=== PATIENT | male | born 1990 | race Caucasian/White ===

== ENCOUNTER 2017-03-02 01:02 | Emergency (ER) | payer OTHER ==
[~2017-03-02] VITALS: Ht 170.2 cm; Wt 79.4 kg
[2017-03-02 01:05] VITALS: BP 139/91
[2017-03-02] MEDS ORDERED: ACETAMINOPHEN TAB 650MG DOSE (2X325MG) PO ONE (02:15)
[2017-03-02] MEDS ORDERED: CIPROFLOXACIN HC OTIC SUSPENSION AS ONE (04:00)
[2017-03-02] MEDS ORDERED: OXYCODONE/APAP 5MG/325MG(BULK FOR ED) 1 TABLET PO ONE (04:15)
== END 2017-03-02 04:33 | disposition home or self-care (01) ==
LOC: M ED 02:21
DX: H60.92 Unspecified otitis externa, left ear (principal); F33.9 Major depressive disorder, recurrent, unspecified; F41.9 Anxiety disorder, unspecified; F17.200 Nicotine dependence, unspecified, uncomplicated

== ENCOUNTER 2017-03-04 21:55 | Emergency (ER) | payer OTHER ==
[~2017-03-04] VITALS: Ht 170.2 cm; Wt 79.4 kg
[2017-03-04] MEDS ORDERED: CIPRHCOTIC AS (22:07)
[2017-03-04] MEDS ORDERED: MOTR200T44 PO (22:08)
[2017-03-04] MEDS ORDERED: PERC5TAB6 PO (22:28)
[2017-03-04] MEDS ORDERED: AUGM875T27 PO (22:28)
[2017-03-04] MEDS ORDERED: AUGMENTIN 875 MG TAB PO ONE (22:30)
[2017-03-04] MEDS ORDERED: OXYCODONE/APAP 5MG/325MG(BULK FOR ED) 1 TABLET PO ONE (22:30)
[2017-03-04 22:32] VITALS: BP 141/75
== END 2017-03-04 22:45 | disposition home or self-care (01) ==
LOC: M ED 22:27
DX: H60.502 Unspecified acute noninfective otitis externa, left ear (principal)

== ENCOUNTER 2017-12-26 17:45 | Inpatient (IN) | payer OTHER ==
[2017-12-26 18:27] LABS: HEMATOCRIT 44.1 % (42.0-52.0); HEMOGLOBIN 16.1 g/dl (14.0-18.0); MEAN CORPUSCULAR HEMOGLOBIN 31.9 pg (27.0-33.0); MEAN CORPUSCULAR HGB CONC 36.5 g/dl (32.0-36.5); MEAN CORPUSCULAR VOLUME 87.5 fl (80.0-96.0); PLATELET COUNT, AUTOMATED 304 10^3/uL (150-450); RED BLOOD COUNT 5.04 10^6/uL (4.30-6.10); RED CELL DISTRIBUTION WIDTH 11.5 % (11.5-14.5); WHITE BLOOD COUNT 8.7 10^3/uL (4.0-10.0)
[2017-12-26 19:01] LABS: AMPHETAMINES LEVEL URINE NEGATIVE (NEGATIVE); BARBITURATES URINE NEGATIVE (NEGATIVE); BENZODIAZEPINES URINE NEGATIVE (NEGATIVE); CANNABINOIDS URINE NEGATIVE (NEGATIVE); COCAINE METABOLITE URINE NEGATIVE (NEGATIVE); METHADONE URINE NEGATIVE (NEGATIVE); OPIATES URINE NEGATIVE (NEGATIVE); PHENCYCLIDINE URINE NEGATIVE (NEGATIVE)
[2017-12-26 19:09] LABS: ALBUMIN 4.2 GM/DL (3.2-5.2); ALBUMIN/GLOBULIN RATIO 1.27 (1.00-1.93); ALKALINE PHOSPHATASE 92 U/L (45-117); ALT/SGPT 77 U/L (12-78); ANION GAP 7 MEQ/L (8-16); AST/SGOT 32 U/L (7-37); BILIRUBIN,DIRECT 0.1 MG/DL (0.0-0.2); BILIRUBIN,TOTAL 0.4 MG/DL (0.2-1.0); BLOOD UREA NITROGEN 16 MG/DL (7-18); CARBON DIOXIDE LEVEL 28 MEQ/L (21-32); CHLORIDE LEVEL 106 MEQ/L (98-107); CREATININE FOR GFR 0.91 MG/DL (0.70-1.30); ETHYL ALCOHOL (ETHANOL) < 0.003 % (0.000-0.010); GLOMERULAR FILTRATION RATE > 60.0 (>60); GLUCOSE, FASTING 73 MG/DL (70-100); POTASSIUM SERUM 4.1 MEQ/L (3.5-5.1); SALICYLATE LEVEL < 1.7 MG/DL (5.0-30.0); SODIUM LEVEL 141 MEQ/L (136-145); TOTAL PROTEIN 7.5 GM/DL (6.4-8.2)
[2017-12-26 19:11] LABS: ACETAMINOPHEN LEVEL < 2.0 UG/ML (10.0-30.0)
[2017-12-27] MEDS ORDERED: traZODone 50 MG TAB PO (01:30)
[2017-12-27] MEDS ORDERED: ACETAMINOPHEN TAB 650MG DOSE (2X325MG) PO (01:30)
[2017-12-27] MEDS ORDERED: MOM 30ML SUSPENSION UDC PO (01:30)
[2017-12-27] MEDS: ARIPiprazole 2 MG TAB PO (11:22)
[2017-12-27] MEDS: FLUoxetine 20 MG CAP PO (11:22)
[2017-12-27] MEDS: traZODone 100 MG TAB PO (21:09)
[2017-12-27] MEDS: PRAZOSIN 1 MG CAP PO (21:09)
[2017-12-28] MEDS: ARIPiprazole 2 MG TAB PO (09:05)
[2017-12-28] MEDS: FLUoxetine 20 MG CAP PO (09:05)
[2017-12-28] MEDS: MAALOX 30 ML SUSP *UDC PO (10:27)
[2017-12-28 16:53] LABS: HEMATOCRIT 42.5 % (42.0-52.0); HEMOGLOBIN 15.9 g/dl (14.0-18.0); MEAN CORPUSCULAR HEMOGLOBIN 32.3 pg (27.0-33.0); MEAN CORPUSCULAR VOLUME 86.2 fl (80.0-96.0); PLATELET COUNT, AUTOMATED 298 10^3/uL (150-450); RED BLOOD COUNT 4.93 10^6/uL (4.30-6.10); RED CELL DISTRIBUTION WIDTH 11.2 % (11.5-14.5); WHITE BLOOD COUNT 6.9 10^3/uL (4.0-10.0)
[2017-12-28 17:22] LABS: ALBUMIN 4.1 GM/DL (3.2-5.2); ALBUMIN/GLOBULIN RATIO 1.24 (1.00-1.93); ALKALINE PHOSPHATASE 96 U/L (45-117); ALT/SGPT 85 U/L (12-78); ANION GAP 6 MEQ/L (8-16); AST/SGOT 37 U/L (7-37); BILIRUBIN,TOTAL 0.5 MG/DL (0.2-1.0); BLOOD UREA NITROGEN 19 MG/DL (7-18); CALCIUM LEVEL 8.9 MG/DL (8.5-10.1); CARBON DIOXIDE LEVEL 29 MEQ/L (21-32); CHLORIDE LEVEL 103 MEQ/L (98-107); CPK CREATINE PHOSPHOKINASE 79 U/L (39-308); CREATININE FOR GFR 0.98 MG/DL (0.70-1.30); GLOMERULAR FILTRATION RATE > 60.0 (>60); GLUCOSE, FASTING 97 MG/DL (70-100); MB/CK RELATIVE INDEX 1.26 (< OR =4); POTASSIUM SERUM 4.1 MEQ/L (3.5-5.1); SODIUM LEVEL 138 MEQ/L (136-145); TOTAL PROTEIN 7.4 GM/DL (6.4-8.2); TROPONIN I < 0.02 NG/ML (< 0.10)
[2017-12-28 17:25] LABS: MEAN CORPUSCULAR HGB CONC 37.1 g/dl (32.0-36.5)
[2017-12-28] MEDS: traZODone 100 MG TAB PO (21:21)
[2017-12-28] MEDS: PRAZOSIN 1 MG CAP PO (21:22)
[2017-12-29] MEDS: ARIPiprazole 2 MG TAB PO (08:41)
[2017-12-29] MEDS: FLUoxetine 20 MG CAP PO (08:41)
[2017-12-29] MEDS: traZODone 50 MG TAB PO (21:02)
[2017-12-29] MEDS: PRAZOSIN 1 MG CAP PO (21:02)
[2017-12-30] MEDS: ARIPiprazole 2 MG TAB PO (08:04)
[2017-12-30] MEDS: FLUoxetine 20 MG CAP PO (08:04)
[2017-12-30 08:06] LABS: ALBUMIN 3.7 GM/DL (3.2-5.2); ALBUMIN/GLOBULIN RATIO 1.32 (1.00-1.93); ALKALINE PHOSPHATASE 76 U/L (45-117); ALT/SGPT 66 U/L (12-78); ANION GAP 8 MEQ/L (8-16); AST/SGOT 23 U/L (7-37); BILIRUBIN,TOTAL 0.4 MG/DL (0.2-1.0); BLOOD UREA NITROGEN 17 MG/DL (7-18); CALCIUM LEVEL 8.8 MG/DL (8.5-10.1); CARBON DIOXIDE LEVEL 26 MEQ/L (21-32); CHLORIDE LEVEL 107 MEQ/L (98-107); CREATININE FOR GFR 0.91 MG/DL (0.70-1.30); GLOMERULAR FILTRATION RATE > 60.0 (>60); GLUCOSE, FASTING 80 MG/DL (70-100); POTASSIUM SERUM 4.4 MEQ/L (3.5-5.1); SODIUM LEVEL 141 MEQ/L (136-145); TOTAL PROTEIN 6.5 GM/DL (6.4-8.2)
[2017-12-30 10:33] LABS: HEPATITIS B SURFACE ANTIGEN NEGATIVE (NEGATIVE)
[2017-12-30 10:53] LABS: HEPATITIS B CORE ANTIBODY IGM NEGATIVE (NEGATIVE)
[2017-12-30 10:54] LABS: HEPATITIS A ANTIBODY IGM NEGATIVE (NEGATIVE)
[2017-12-30] MEDS: traZODone 50 MG TAB PO (21:02)
[2017-12-30] MEDS: PRAZOSIN 1 MG CAP PO (21:03)
[2017-12-31] MEDS: FLUoxetine 20 MG CAP PO (08:28)
[2017-12-31] MEDS: ARIPiprazole 2 MG TAB PO (08:28)
[2017-12-31] MEDS: PRAZOSIN 1 MG CAP PO (21:13)
[2017-12-31] MEDS: traZODone 50 MG TAB PO (21:13)
[2018-01-01] MEDS: ARIPiprazole 2 MG TAB PO (09:02)
[2018-01-01] MEDS: FLUoxetine 20 MG CAP PO (09:02)
[2018-01-01] MEDS: traZODone 50 MG TAB PO (21:20)
[2018-01-01] MEDS: PRAZOSIN 1 MG CAP PO (21:21)
[2018-01-02] MEDS: ARIPiprazole 2 MG TAB PO (08:04)
[2018-01-02] MEDS: FLUoxetine 20 MG CAP PO (08:04)
== END 2018-01-02 12:45 | disposition home or self-care (01) | DRG 881 ==
LOC: M ED INP 12-27 01:30 → M ED 17:45 → M PSY 12-27 02:50
DX: F32.9 Major depressive disorder, single episode, unspecified (principal); F43.10 Post-traumatic stress disorder, unspecified; Z79.899 Other long term (current) drug therapy; F17.200 Nicotine dependence, unspecified, uncomplicated; F41.9 Anxiety disorder, unspecified; G47.00 Insomnia, unspecified